=== PATIENT | female | born 1980 | race Caucasian/White ===

== ENCOUNTER 2021-12-23 14:12 | Outpatient (CLI) | payer OTHER ==
[~2021-12-23 14:12] MED LIST: Magnevist 469MG/ML 20 ML VIAL ONE
== END 2021-12-23 14:13 | disposition home or self-care (01) ==
LOC: CSHMRI 14:12
PROVIDERS: ATTEND Psychiatry & Neurology Neurology
DX: G40.409 Other generalized epilepsy and epileptic syndromes, not intractable, without status epilepticus (principal); G93.9 Disorder of brain, unspecified
CPT/HCPCS: 70553